=== PATIENT | female | born 1985 | race Caucasian/White ===

== ENCOUNTER 2017-01-07 04:13 | Inpatient (IN) | payer OTHER ==
[2017-01-07] MEDS ORDERED: Sodium Chloride 0.9% 10 ML Syringe FLUSH PRN ×2 (11:27→11:30)
[2017-01-07] MEDS ORDERED: Lactated Ringers 1,000 ML IV SCH (11:30)
[2017-01-07] MEDS ORDERED: Nalbuphine 20 MG/1 ML Amp IVPUSH PRN (12:30)
[2017-01-07] MEDS ORDERED: Ondansetron 4 MG/2 ML SDV IVPUSH PRN (12:30)
[2017-01-07] MEDS ORDERED: Lidocaine 1% 50 ML MDV INJECT ONE (12:30)
[2017-01-07] MEDS ORDERED: Ampicillin 2 GM in Sodium Chloride 0.9% 100 ML IV ONE (13:00)
[2017-01-07] MEDS: Oxytocin/Lactated Ringers 10 UNIT/1,000 ML BAG IV SCH (13:30)
--- NOTE | 2017-01-07 13:41 | PCM.PREANE ---
Preanesthetic Assessment - Anesthesia/Transfusion/Family Hx Anesthesia History: Prior Anesthesia Without Reaction Family History of Anesthesia Reaction: No Transfusion History: No Prior Transfusion(s) - Review of Systems General: No Symptoms Pulmonary: No Symptoms Cardiovascular: No Symptoms Gastrointestinal: No Symptoms Neurological: No Symptoms Other: Reports: None - Physical Assessment Pulse: 76 Respiratory Rate: 20 Blood Pressure: 128/85 Height: 5 ft 10 in Weight: 102.512 kg ASA Class: 2 Mental Status: Alert & Oriented x3 Airway Class: Mallampati = 1 Dentition: Reports: Normal Dentition Thyro-Mental Finger Breadths: 3 Mouth Opening Finger Breadths: 3 ROM/Head Extension: Full Lungs: Clear to Auscultation, Normal Respiratory Effort Cardiovascular: Regular Rate, Regular Rhythm, No Murmurs - Lab Values: Laboratory Last Values WBC 12.12 K/mm3 (3.98-10.04) H 01/07/17 12:40 RBC 4.32 M/mm3 (3.98-5.22) 01/07/17 12:40 Hgb 12.9 gm/L (11.2-15.7) 01/07/17 12:40 Hct 38.1 % (34.1-44.9) 01/07/17 12:40 MCV 88.2 fl (79.4-94.8) 01/07/17 12:40 MCH 29.9 pg (25.6-32.2) 01/07/17 12:40 MCHC 33.9 g/dl (32.2-35.5) 01/07/17 12:40 RDW Std Deviation 46.1 fL (36.4-46.3) 01/07/17 12:40 Plt Count 211 K/mm3 (182-369) 01/07/17 12:40 MPV 11.1 fl (9.4-12.3) 01/07/17 12:40 Neut % (Auto) 73.0 % (34.0-71.1) H 01/07/17 12:40 Lymph % (Auto) 18.5 % (19.3-51.7) L 01/07/17 12:40 [place] % (Auto) 7.5 % (4.7-12.5) 01/07/17 12:40 Eos % (Auto) 0.3 (0.7-5.8) L 01/07/17 12:40 Baso % (Auto) 0.2 % (0.1-1.2) 01/07/17 12:40 Neut # (Auto) 8.84 K/mm3 (1.56-6.13) H 01/07/17 12:40 Lymph # (Auto) 2.24 K/mm3 (1.18-3.74) 01/07/17 12:40 [place] # (Auto) 0.91 K/mm3 (0.24-0.36) H 01/07/17 12:40 Eos # (Auto) 0.04 K/mm3 (0.04-0.36) 01/07/17 12:40 Baso # (Auto) 0.03 K/mm3 (0.01-0.08) 01/07/17 12:40 - Allergies Allergies/Adverse Reactions: Allergies Allergy/AdvReac Type Severity Reaction Status Date / Time latex Allergy Rash Verified 12/15/13 08:46 - Acknowledgements Anesthesia Type Planned: Epidural Pt an Appropriate Candidate for the Planned Anesthesia: Yes Alternatives and Risks of Anesthesia Discussed w Pt/Guardian: Yes Pt/Guardian Understands and Agrees with Anesthesia Plan: Yes PreAnesthesia Questionnaire - Past Health History Medical/Surgical History: Denies Medical/Surgical History Cardiovascular History: Reports: None Respiratory History: Reports: None : 2 (39 4) Para: 1 - Past Surgical History HEENT Surgical History: Reports: LASIK, Oral Surgery Musculoskeletal Surgical History: Reports: Ganglion Cyst - SUBSTANCE USE Smoking Status *Q: Never Smoker Tobacco Use Within Last Twelve Months: No Second Hand Smoke Exposure: No Days Per Week of Alcohol Use: 0 Recreational Drug Use History: No - HOME MEDS Home Medications: Home Meds Acetaminophen [Tylenol] 650 mg PO Q4H PRN 10 Days tablet 12/18/13 [Rx] Docusate Sodium [Colace] 100 mg PO BID PRN #60 cap 12/18/13 [Rx] Ibuprofen [Motrin] 600 mg PO Q4H PRN #40 tablet 12/18/13 [Rx] Lanolin [Lansinoh HPA] 0.05 gm TOP ASDIRECTED PRN #1 tube 12/18/13 [Rx] Vit with Ca/FA/Iron [ Plus Iron] 1 each PO DAILY 90 Days tablet 12/18/13 [Rx] - CURRENT (IN HOUSE) MEDS Current Meds: Current Medications Lactated Ringer's (Ringers, Lactated) 1,000 mls @ 40 mls/hr IV ASDIRECTED AFUA Last Admin: 01/07/17 13:13 Dose: 40 mls/hr Oxytocin/Lactated Ringer's (Pitocin In Lr 10 Units/1,000 Ml) 10 unit in 1,000 mls @ 12 mls/hr IV TITRATE AFUA; 2 MUNITS/MIN PRN Reason: Protocol Last Admin: 01/07/17 13:30 Dose: 2 munits/min, 12 mls/hr Ampicillin Sodium 1 gm/ Sodium (Chloride) 100 mls @ 200 mls/hr IV Q4H AFUA Lactated Ringer's (Ringers, Lactated) 1,000 mls @ 100 mls/hr IV ASDIRECTED AFUA Nalbuphine HCl (Nubain) 10 mg IVPUSH Q2H PRN PRN Reason: Pain (moderate 4-6) Ondansetron HCl (Zofran) 4 mg IVPUSH Q4H PRN PRN Reason: Nausea/Vomiting Sodium Chloride (Saline Flush) 10 ml FLUSH ASDIRECTED PRN PRN Reason: Keep Vein Open Sodium Chloride (Saline Flush) 10 ml FLUSH ASDIRECTED PRN PRN Reason: Keep Vein Open Discontinued Medications Ampicillin Sodium 2 gm/ Sodium (Chloride) 100 mls @ 200 mls/hr IV ONETIME ONE Stop: 01/07/17 13:29 Last Admin: 01/07/17 13:13 Dose: 200 mls/hr Lidocaine HCl (Xylocaine 1%) 10 ml INJECT ONETIME ONE Stop: 01/07/17 12:31
[2017-01-07] MEDS ORDERED: fentaNYL 100 MCG/2 ML SDV EPIDUR PRN (14:00)
[2017-01-07] MEDS ORDERED: ePHEDrine 50 MG/ML SDV IVPUSH PRN (14:00)
[2017-01-07] MEDS ORDERED: diphenhydrAMINE 50 MG/ML SDV IVPUSH PRN (14:00)
[2017-01-07] MEDS ORDERED: Bupivacaine/fentaNYL/NS 100 ML Bag EPIDUR SCH (14:00)
--- NOTE | 2017-01-07 17:39 | PCM.LDHP ---
L&D History of Present Illness - General Date of Service: 01/07/17 Admit Problem/Dx: Patient Status Order with Admit Dx/Problem 01/07/17 11:30 Patient Status [ADT] Routine Admission Diagnosis/Problem Admission Diagnosis/Problem Normal Source of Information: Patient, Other History Limitations: Reports: No Limitations - History of Present Illness Introduction:: History of present illness: Patient is a 31-year-old 2 para 1001 white female who is admitted for induction of labor. LEAD CARGOMAN history: 2 para 1001. Last menstrual period was fairly definite at 04/05/2016 onset, putting her at an CHIDI of 01/10/17. Patient has had ultrasounds at 6-5 weeks, 11-5 weeks, and 23-1 weeks confirming her CHIDI. Menarche occurred at age 12 and were irregular. Previous lasted 26 hours and resulted in a at 41 weeks gestation after induction, resulting in a girl named Merary born at 6 lbs 12 oz. course: First visit occurred on 06/25/16 at 10-3 weeks gestation. Patient had acute sinusitis in her first trimester. Received Rhogam at 28 weeks. Had a small amount of vaginal bleeding during her second trimester over the course of three weeks that resolved. Otherwise, baby has been active and fundal heights have showed normal growth. She went from a pre- weight of 175 lbs to a weight of 225 lbs, a gain of 50 lbs. Laboratory testing: Blood type is O negative. Antibody screen is negative. Initial labs showed a HGB of 13.8 and platelets of 228,000. She is rubella immune and RPR nonreactive. Hepatitis B surface antigen and HIV assays were both negative. Initial urinalysis showed Group B strep and Gardnerella vaginalis. Chlamydia and gonorrhea were both negative. Second trimester labs showed a HGB of 12.3 and platelets of 196,000. Her one hour GTT was 122. Allergies: 1. Latex gloves - rash Medications: 1. vitamins Past medical history: 1. Seasonal allergies 2. Infertility Past surgical history: 1. Arthrocentesis of wrist (Ganglion cyst) 2. LASIX 3. Intrauterine insemination Family history: Mother alive with thyroid disease and osteoporosis. Father alive with HTN. One brother and two sisters alive and well. MGM-alive with osteoporosis and HTN. MGF- prostate cancer, PGM-alive with glaucoma, HTN , hypercholesteremia. PGF-, lung cancer and smoker. Dad has hemochromatosis. No bleeding, clotting, anesthesia, or problems noted. Social history: Patient is . is Chay Castillo. Lives in [place], [place]. Works as a physician's assistant buyer. No significant alcohol, drugs, or tobacco. Review of systems: Patient has no concerns. Reports normal changes. Skin: no rashes Heart: no chest pain Lungs: no cough or shortness of breath Breasts: normal changes GI: no constipation or diarrhea : no dysuria Musculoskeletal: no tenderness, occasional edema Neurologic: normal Physical exam: Evaluation in clinic showed a BP of 128/58, weight of 224.8, FHR of 133, fundal height of 37 cm with baby in vertex presentation. She is well- developed, well-nourished, and in no acute distress. Skin: no rashes, warm and dry HEENT: no lymphadenopathy Heart: regular rate and rhythm, no murmurs Lungs: clear breath sounds bilaterally Breast: deferred Abdomen: protuberant with , fundal height 37 cm, baby in vertex presentation. Cervical exam: 3+, 60%, firm, -2 Extremities and neurological: no edema or tenderness - Related Data Allergies/Adverse Reactions: Allergies Allergy/AdvReac Type Severity Reaction Status Date / Time latex Allergy Rash Verified 12/15/13 08:46 Home Medications: Home Meds Acetaminophen [Tylenol] 650 mg PO Q4H PRN 10 Days tablet 12/18/13 [Rx] Docusate Sodium [Colace] 100 mg PO BID PRN #60 cap 12/18/13 [Rx] Ibuprofen [Motrin] 600 mg PO Q4H PRN #40 tablet 12/18/13 [Rx] Lanolin [Lansinoh HPA] 0.05 gm TOP ASDIRECTED PRN #1 tube 12/18/13 [Rx] Vit with Ca/FA/Iron [ Plus Iron] 1 each PO DAILY 90 Days tablet 12/18/13 [Rx] Past Medical History - Past Health History Medical/Surgical History: Denies Medical/Surgical History Cardiovascular History: Reports: None Respiratory History: Reports: None LEAD CARGOMAN History: Reports: - Past Surgical History HEENT Surgical History: Reports: LASIK, Oral Surgery Musculoskeletal Surgical History: Reports: Ganglion Cyst Social & Family History - Family History Family Medical History: Noncontributory - Tobacco Use Smoking Status *Q: Never Smoker Second Hand Smoke Exposure: No - Caffeine Use Caffeine Use: Reports: Coffee - Alcohol Use Days Per Week of Alcohol Use: 0 - Recreational Drug Use Recreational Drug Use: No H&P Review of Systems - Review of Systems: Review Of Systems: See Below L&D Exam - Exam Exam: See Below - Vital Signs Vital Signs: Last Vital Signs Temp 99.2 F 01/07/17 11:27 Pulse 76 01/07/17 13:45 Resp 20 01/07/17 13:45 BP 128/85 01/07/17 13:45 Pulse Ox 98 01/07/17 11:27 Weight: 226 lb - Patient Data Lab Results Last 24 hrs: Laboratory Results - last 24 hr 01/07/17 Range/Units 12:40 WBC 12.12 H (3.98-10.04) K/mm3 RBC 4.32 (3.98-5.22) M/mm3 Hgb 12.9 (11.2-15.7) gm/L Hct 38.1 (34.1-44.9) % MCV 88.2 (79.4-94.8) fl MCH 29.9 (25.6-32.2) pg MCHC 33.9 (32.2-35.5) g/dl RDW Std Deviation 46.1 (36.4-46.3) fL Plt Count 211 (182-369) K/mm3 MPV 11.1 (9.4-12.3) fl Neut % (Auto) 73.0 H (34.0-71.1) % Lymph % (Auto) 18.5 L (19.3-51.7) % [place] % (Auto) 7.5 (4.7-12.5) % Eos % (Auto) 0.3 L (0.7-5.8) Baso % (Auto) 0.2 (0.1-1.2) % Neut # (Auto) 8.84 H (1.56-6.13) K/mm3 Lymph # (Auto) 2.24 (1.18-3.74) K/mm3 [place] # (Auto) 0.91 H (0.24-0.36) K/mm3 Eos # (Auto) 0.04 (0.04-0.36) K/mm3 Baso # (Auto) 0.03 (0.01-0.08) K/mm3 Result Diagrams: 01/07/17 12:40 Problem List Initiated/Reviewed/Updated: Yes Orders Last 24hrs: Active Orders 24 hr Category Date Time Status Patient Status [ADT] Routine ADT 01/07/17 11:30 Active Activity as Tolerated [RC] PFP Care 01/07/17 11:30 Active Communication Order [RC] ASDIRECTED Care 01/07/17 11:27 Active Communication Order [RC] ASDIRECTED Care 01/07/17 11:27 Active Communication Order [RC] ASDIRECTED Care 01/07/17 11:27 Active Communication Order [RC] ASDIRECTED Care 01/07/17 11:30 Active Notify Provider Vital Signs [RC] PRN Care 01/07/17 11:34 Active Notify Provider [RC] ASDIRECTED Care 01/07/17 11:27 Active Notify Provider [RC] ASDIRECTED Care 01/07/17 14:00 Active Notify Provider [RC] PFP Care 01/07/17 11:30 Active Notify Provider [RC] PRN Care 01/07/17 11:30 Active Pump Management, Intrathecal [RC] ASDIRECTED Care 01/07/17 11:32 Active Up ad [place] [RC] ASDIRECTED Care 01/07/17 11:29 Active Regular Diet [DIET] Diet 01/07/17 Lunch Active Ampicillin 1 gm Med 01/07/17 17:00 Active Sodium Chloride 0.9% [Normal Saline] 100 ml IV Q4H Bupivacaine/fentaNYL/NS [fentaNYL/Bupivacaine/NS 2 MCG- Med 01/07/17 14:00 Active 0.125% 100 ML] 100 ml EPIDUR ASDIRECTED Lactated Ringers [Ringers, Lactated] 1,000 ml Med 01/07/17 11:30 Active IV ASDIRECTED Lactated Ringers [Ringers, Lactated] 1,000 ml Med 01/07/17 11:30 Active IV ASDIRECTED Nalbuphine [Nubain] Med 01/07/17 12:30 Active 10 mg IVPUSH Q2H PRN Ondansetron [Zofran] Med 01/07/17 12:30 Active 4 mg IVPUSH Q4H PRN Oxytocin/Lactated Ringers [Pitocin in LR 10 Units/1,000 Med 01/07/17 11:30 Active ML] 10 unit in 1,000 ml IV TITRATE Sodium Chloride 0.9% [Saline Flush] Med 01/07/17 11:27 Active 10 ml FLUSH ASDIRECTED PRN Sodium Chloride 0.9% [Saline Flush] Med 01/07/17 11:30 Active 10 ml FLUSH ASDIRECTED PRN diphenhydrAMINE [Benadryl] Med 01/07/17 14:00 Active 25 mg IVPUSH Q6H PRN ePHEDrine [ePHEDrine Sulfate] Med 01/07/17 14:00 Active 5 mg IVPUSH ASDIRECTED PRN fentaNYL [Sublimaze] Med 01/07/17 14:00 Active 100 mcg EPIDUR Q3H PRN Electronic Heart Tones Ext w TOCO [WOMSER] Oth 01/07/17 11:30 Ordered Routine Electronic Heart Tones Internal [WOMSER] Per Unit Oth 01/07/17 11:30 Ordered Routine Peripheral IV Insertion Adult [OM.PC] Routine Oth 01/07/17 11:27 Ordered Peripheral IV Insertion Adult [OM.PC] Routine Oth 01/07/17 11:30 Ordered Resuscitation Status Routine Resus Stat 01/07/17 11:30 Ordered Medication Orders Diphenhydramine HCl (Benadryl) 25 mg IVPUSH Q6H PRN PRN Reason: pruritis Ephedrine Sulfate (Ephedrine Sulfate) 5 mg IVPUSH ASDIRECTED PRN PRN Reason: Hypotension Fentanyl (Sublimaze) 100 mcg EPIDUR Q3H PRN PRN Reason: Pain Fentanyl/Bupivacaine HCl (Fentanyl/Bupivacaine/Ns 2 Mcg-0.125% 100 Ml) 100 ml EPIDUR ASDIRECTED AFUA Lactated Ringer's (Ringers, Lactated) 1,000 mls @ 40 mls/hr IV ASDIRECTED AFUA Last Admin: 01/07/17 13:13 Dose: 40 mls/hr Oxytocin/Lactated Ringer's (Pitocin In Lr 10 Units/1,000 Ml) 10 unit in 1,000 mls @ 12 mls/hr IV TITRATE AFUA; 2 MUNITS/MIN PRN Reason: Protocol Last Titration: 01/07/17 16:44 Dose: 12 munits/min, 72 mls/hr Titration: 01/07/17 16:00 Dose: 10 munits/min, 60 mls/hr Titration: 01/07/17 15:29 Dose: 8 munits/min, 48 mls/hr Titration: 01/07/17 15:01 Dose: 6 munits/min, 36 mls/hr Titration: 01/07/17 14:07 Dose: 4 munits/min, 24 mls/hr Admin: 01/07/17 13:30 Dose: 2 munits/min, 12 mls/hr Ampicillin Sodium 1 gm/ Sodium (Chloride) 100 mls @ 200 mls/hr IV Q4H AFUA Lactated Ringer's (Ringers, Lactated) 1,000 mls @ 100 mls/hr IV ASDIRECTED AFUA Nalbuphine HCl (Nubain) 10 mg IVPUSH Q2H PRN PRN Reason: Pain (moderate 4-6) Ondansetron HCl (Zofran) 4 mg IVPUSH Q4H PRN PRN Reason: Nausea/Vomiting Sodium Chloride (Saline Flush) 10 ml FLUSH ASDIRECTED PRN PRN Reason: Keep Vein Open Sodium Chloride (Saline Flush) 10 ml FLUSH ASDIRECTED PRN PRN Reason: Keep Vein Open Assessment/Plan Comment:: Assessment: 1. 31-year-old at 39 4/7 weeks by last menstrual period admitted for induction of labor. 2. Group B strep positive 3. O negative with Rhogam given at 28 weeks Plan: 1. Induction of labor with oxytocin 2. Ampicillin for GBS prophylaxis 3. Accepting of epidural 4. Plans to breast feed
[2017-01-07] MEDS: Ampicillin 1 GM in Sodium Chloride 0.9% 100 ML IV SCH ×2 (17:47→21:09)
[2017-01-08] MEDS: Lactated Ringers 1,000 ML IV SCH ×5 (00:20→03:27)
[2017-01-08] MEDS: Ampicillin 1 GM in Sodium Chloride 0.9% 100 ML IV SCH ×2 (01:31→08:06)
[2017-01-08] MEDS: Oxytocin/Lactated Ringers 10 UNIT/1,000 ML BAG IV SCH (01:34)
--- NOTE | 2017-01-08 04:41 | PCM.SN ---
- Free Text/Narrative Note: Christina is a 31-year-old 2 now para 2002 white female who was admitted at 39-4/7 weeks on 01/07/2017 for elective induction of labor due to increased distance from the hospital and multiparous status. She was started on Pitocin and began having contractions. She was further augmented with artificial rupture membranes on the evening of 01/07/2017. She progressed slowly but steadily to complete cervical dilation by approximately 0400 hrs. and delivered a viable, no, female with Apgars of 8 and 9, a weight of 3120 g ( 6 pounds 14.1 ounces), 20.5 inches in length in an occiput anterior position at 0413 hrs. After the baby was delivered the nose and mouth were bulb suctioned and baby was placed on mom's abdomen. The umbilical cord was clamped 2 and then was cut by the baby's father. Cord blood was obtained. Patient is noted to have a first-degree perineal laceration which was repaired with a [id number] suture of 3-0 Monocryl. Epidural was adequate for anesthesia. Hemostasis was confirmed. Pitocin was started after the delivery of the baby. The placenta delivered delivered in a Nelson presentation, appeared intact and complete and there was a three-vessel cord. Assessment boluses approximate 300 mL. The placenta was discarded per patient desire. Patient plans to nurse. Condition: Good
[2017-01-08] MEDS ORDERED: Ibuprofen 600 MG Tab PO PRN (05:31)
[2017-01-08] MEDS ORDERED: Witch Hazel Medicated Pads 100/Jar TOP PRN (05:31)
[2017-01-08] MEDS ORDERED: Lanolin 100% Cream 7 GM Tube TOP PRN (05:31)
[2017-01-08] MEDS ORDERED: Acetaminophen 325 MG Tab PO PRN (05:31)
[2017-01-08] MEDS ORDERED: Docusate Sodium 100 MG Cap PO PRN (05:31)
[2017-01-08] MEDS ORDERED: Benzocaine/Menthol 20%-0.5% Spray 56 GM Canister TOP PRN (05:31)
[2017-01-08] MEDS: Prenatal Multivitamin with Calcium/Folic Acid/Iron Tab PO SCH (08:57)
--- NOTE | 2017-01-08 16:53 | PCM48HPAN ---
Post Anesthesia Note - EVALUATION WITHIN 48HRS OF ANESTHETIC Vital Signs in Normal Range: Yes Patient Participated in Evaluation: Yes Respiratory Function Stable: Yes Airway Patent: Yes Cardiovascular Function Stable: Yes Hydration Status Stable: Yes Pain Control Satisfactory: Yes Nausea and Vomiting Control Satisfactory: Yes Mental Status Recovered: Yes - COMMENTS/OBSERVATIONS Free Text/Narrative:: Patient denied any headaches, residual numbness or tingling to lower extremities , or back pain. Patient doing well resting in bed.
[2017-01-08] MEDS ORDERED: Bupivacaine 0.25% 10 ML SDV ONE (22:22)
[2017-01-09] MEDS: Prenatal Multivitamin with Calcium/Folic Acid/Iron Tab PO SCH (09:15)
--- NOTE | 2017-01-09 15:09 | PCM.SN ---
- Free Text/Narrative Note: Note: Subjective: - Minimal lochia - Ambulating, voiding, and well - Received Rhogam Objective: - VS: T 98.2, P 79, BP 106/71, R 16, O2 95 - Abdomen: uterus at umbilicus, nontender, firm - Extremities: 1+ edema, nontender - WBC 8.64. HGB 10.5, Plt 171 Assessment: - 31-year-old G2, now P2002, s/p vaginal delivery who is doing well. PPD #1. - Received Rhogam for O negative blood - Currently breast feeding Plan: - Routine care - Possible discharge tomorrow depending on baby's bilirubin level
--- NOTE | 2017-01-10 05:43 | PCM.DCSUM1 ---
Discharge Summary - Hospital Course Free Text/Narrative:: 39 week -induction of labor - Discharge Data Discharge Date: 01/10/17 Discharge Disposition: Home, Self-Care 01 Condition: Good - Patient Instructions Diet: Regular Diet as Tolerated (increased calcium and calories as directed) Activity: As Tolerated (No intercourse or tampons till bleeding resolves) Driving: Do Not Drive (2 days) Showering/Bathing: May Shower (May take a bath) Notify Provider of: Fever, Increased Pain, Swelling and Redness, Nausea and/or Vomiting - Discharge Plan Home Medications: Home Meds Acetaminophen [Tylenol] 650 mg PO Q4H PRN 10 Days tablet 12/18/13 [Rx] Docusate Sodium [Colace] 100 mg PO BID PRN #60 cap 12/18/13 [Rx] Ibuprofen [Motrin] 600 mg PO Q4H PRN #40 tablet 12/18/13 [Rx] Lanolin [Lansinoh HPA] 0.05 gm TOP ASDIRECTED PRN #1 tube 12/18/13 [Rx] Vit with Ca/FA/Iron [ Plus Iron] 1 each PO DAILY 90 Days tablet 12/18/13 [Rx] Referrals: Castro Mart MD [Primary Care Provider] - (Return to clinicDr. Mart6 weeks.) - Discharge Summary/Plan Comment DC Time >30 min.: No Discharge Summary/Plan Comment: Discharge instructions: 1. Discharge home 2. Regular, high fiber, nursing diet with increase calories and calcium as directed. 3. precautions given concern increased pain, bleeding, temperature, signs/symptoms of DVT/PE. 4. Activity and follow-up discussed with patient. 5. Medications per home medication was printed, discussed with them given to the patient. 6. Return to clinic-Dr. Mart-6 weeks-[facility]. Diagnosis: 39 week intrauterine pregnancydelivered Condition : Good - Patient Data Vitals - Most Recent: Last Vital Signs Temp 36.5 C 01/09/17 21:34 Pulse 77 01/09/17 21:34 Resp 16 01/09/17 21:34 BP 115/75 01/09/17 21:34 Pulse Ox 97 01/09/17 21:34 Weight - Most Recent: 102.512 kg I&O - Last 24 hours: Intake & Output 01/09/17 01/09/17 01/10/17 14:59 22:59 06:59 Intake Total 120 300 Balance 120 300 Lab Results - Last 24 hrs: Laboratory Results - last 24 hr 01/09/17 Range/Units 05:14 WBC 8.64 (3.98-10.04) K/mm3 RBC 3.46 L (3.98-5.22) M/mm3 Hgb 10.5 L (11.2-15.7) gm/L Hct 30.9 L (34.1-44.9) % MCV 89.3 (79.4-94.8) fl MCH 30.3 (25.6-32.2) pg MCHC 34.0 (32.2-35.5) g/dl RDW Std Deviation 45.5 (36.4-46.3) fL Plt Count 171 L (182-369) K/mm3 MPV 11.3 (9.4-12.3) fl Med Orders - Current: Current Medications Acetaminophen (Tylenol) 650 mg PO Q4H PRN PRN Reason: mild pain or fever Benzocaine/Menthol (Dermoplast Pain Relief [place]) 0 gm TOP ASDIRECTED PRN PRN Reason: Perineal Comfort Measure Docusate Sodium (Colace) 100 mg PO BID PRN PRN Reason: Constipation Emollient Ointment (Lansinoh Hpa) 0 gm TOP ASDIRECTED PRN PRN Reason: Sore Nipples Ibuprofen (Motrin) 600 mg PO Q4H PRN PRN Reason: Mild pain or fever Last Admin: 01/09/17 09:15 Dose: 600 mg Prenat Multivit/Senior Professional Services Consultant/Iron/Folic Ac ( Plus Iron) 1 each PO DAILY AFUA Last Admin: 01/09/17 09:15 Dose: 1 each Witch Katie (Tucks) 1 pad TOP ASDIRECTED PRN PRN Reason: Hemorrhoid pain Last Admin: 01/08/17 07:16 Dose: 1 tub Discontinued Medications Diphenhydramine HCl (Benadryl) 25 mg IVPUSH Q6H PRN PRN Reason: pruritis Ephedrine Sulfate (Ephedrine Sulfate) 5 mg IVPUSH ASDIRECTED PRN PRN Reason: Hypotension Fentanyl (Sublimaze) 100 mcg EPIDUR Q3H PRN PRN Reason: Pain Last Admin: 01/08/17 00:35 Dose: 100 mcg Fentanyl/Bupivacaine HCl (Fentanyl/Bupivacaine/Ns 2 Mcg-0.125% 100 Ml) 100 ml EPIDUR ASDIRECTED REPLACED BY [facility] Last Admin: 01/08/17 00:35 Dose: 100 ml Lactated Ringer's (Ringers, Lactated) 1,000 mls @ 40 mls/hr IV ASDIRECTED REPLACED BY [facility] Last Admin: 01/07/17 13:13 Dose: 40 mls/hr Oxytocin/Lactated Ringer's (Pitocin In Lr 10 Units/1,000 Ml) 10 unit in 1,000 mls @ 12 mls/hr IV TITRATE AFUA; 2 MUNITS/MIN PRN Reason: Protocol Last Titration: 01/08/17 04:15 Dose: 500 mls/hr Ampicillin Sodium 2 gm/ Sodium (Chloride) 100 mls @ 200 mls/hr IV ONETIME ONE Stop: 01/07/17 13:29 Last Admin: 01/07/17 13:13 Dose: 200 mls/hr Ampicillin Sodium 1 gm/ Sodium (Chloride) 100 mls @ 200 mls/hr IV Q4H REPLACED BY [facility] Last Admin: 01/08/17 08:06 Dose: Not Given Lactated Ringer's (Ringers, Lactated) 1,000 mls @ 100 mls/hr IV ASDIRECTED REPLACED BY [facility] Last Infusion: 01/08/17 04:15 Dose: 0 mls/hr Oxytocin 20 unit/ Lactated (Ringer's) 1,002 mls @ 30.06 mls/hr IV TITRATE AFUA; 10 MUNITS/MIN PRN Reason: Protocol Lidocaine HCl (Xylocaine 1%) 10 ml INJECT ONETIME ONE Stop: 01/07/17 12:31 Last Admin: 01/08/17 09:02 Dose: Not Given Nalbuphine HCl (Nubain) 10 mg IVPUSH Q2H PRN PRN Reason: Pain (moderate 4-6) Ondansetron HCl (Zofran) 4 mg IVPUSH Q4H PRN PRN Reason: Nausea/Vomiting Sodium Chloride (Saline Flush) 10 ml FLUSH ASDIRECTED PRN PRN Reason: Keep Vein Open Sodium Chloride (Saline Flush) 10 ml FLUSH ASDIRECTED PRN PRN Reason: Keep Vein Open *Q Meaningful Use (DIS) - VTE *Q VTE Criteria *Q: - Stroke *Q Stroke Criteria *Q: - AMI *Q AMI Criteria *Q:
[2017-01-10 07:50] VITALS: BP 99/79
[2017-01-10] MEDS: Prenatal Multivitamin with Calcium/Folic Acid/Iron Tab PO SCH (08:55)
== END 2017-01-10 11:30 | disposition home or self-care (01) | DRG 775 ==
LOC: JD.OB 04:13 → OBSVTOIN 01-08 04:13 → EDSTATUS 01-10 10:58
PROVIDERS: ADMIT Obstetrics & Gynecology; ATTEND Obstetrics & Gynecology
PROC: 10E0XZZ Delivery of Products of Conception, External Approach (ICD-10-PCS; principal; 2017-01-08)
PROC: 3E033VJ Introduction of Other Hormone into Peripheral Vein, Percutaneous Approach (ICD-10-PCS; 2017-01-08)
PROC: 10907ZC Drainage of Amniotic Fluid, Therapeutic from Products of Conception, Via Natural or Artificial Opening (ICD-10-PCS; 2017-01-08)
PROC: 0HQ9XZZ Repair Perineum Skin, External Approach (ICD-10-PCS; 2017-01-08)
PROC: 00HU33Z Insertion of Infusion Device into Spinal Canal, Percutaneous Approach (ICD-10-PCS; 2017-01-08)
PROC: 3E0R3CZ (ICD-10-PCS; 2017-01-08)
DX: O99.824 Streptococcus B carrier state complicating childbirth (principal); O70.0 First degree perineal laceration during delivery; Z3A.40 40 weeks gestation of pregnancy; Z37.0 Single live birth; Z91.040 Latex allergy status
CPT/HCPCS: 36415; 85025; 85027; 85461; 86850; 86870; 86900; 86901; A9270-GY; J0290; J2590; J2790; J3010; J7030; J7120